=== PATIENT | female | born 2000 | race Caucasian/White ===

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

== ENCOUNTER 2018-04-07 08:19 | Emergency (ER) | payer BC, MEDICAID ==
[2018-04-07 08:32] VITALS: TEMP 97.6
[2018-04-07] MEDS ORDERED: KETOROLAC TROMETHAMINE INJ 30 MG/ML VIAL IV ONE (08:43)
[2018-04-07] MEDS ORDERED: SODIUM CHLORIDE 0.9% 1000ML 1,000 ML IVS ONE (08:43)
[2018-04-07] MEDS ORDERED: MAGNESIUM HYDROXIDE 30 ML UD PO ONE (08:43)
[2018-04-07] MEDS ORDERED: PANTOPRAZOLE SODIUM TAB 40 MG PO ONE (09:33)
[2018-04-07] MEDS ORDERED: SUCRALFATE 1 GM/10 ML 1 GM UD PO ONE (09:33)
--- NOTE | 2018-04-07 09:40 | ED.PDOC ---
History of Present Illness - General Chief Complaint: Problem Stated Complaint: right flank and back pain Time Seen by Provider: 04/07/18 08:26 Source: patient Exam Limitations: no limitations - History of Present Illness Initial Comments: The patient is a 18-year-old female presenting to the emergency room secondary to epigastric and right upper quadrant pain. She reports that this is been present for the last 3 days. She was seen at an outside hospital and did have a fairly extensive workup including blood work and a CT scan of the abdomen and only really showed some constipation. No evidence of appendicitis or gallbladder disease. No obstruction. She has not been throwing up since that visit but she has had some mild nausea. She has not had a bowel movement in the last 3 days. She was having a little bit of diarrhea for the couple of days before that. No definite fevers. No history of any gallbladder or pancreatitis issues. She has been passing gas. No palpable mass in the abdominal exam. Tenderness does appear primarily in the epigastric and right upper quadrant region. She denies any vaginal discharge. No lower abdominal pain palpation. No blood in the urine. Timing/Duration: other Severity: moderate Improving Factors: nothing Worsening Factors: nothing Associated Symptoms: loss of appetite, malaise, nausea/vomiting Allergies/Adverse Reactions: Allergies NO KNOWN ALLERGY Allergy (Verified 11/04/16 03:10) Home Medications: Ambulatory Orders Ondansetron HCl [Zofran] 4 mg PO Q4HR #20 tab 11/04/16 Esomeprazole Magnesium [Nexium] 40 mg PO BID #60 cap 04/07/18 Sucralfate Tab [Carafate Tab] 1 gm PO QID #120 tab 04/07/18 Review of Systems - Review of Systems Constitutional: States: malaise EENTM: States: no symptoms reported Respiratory: States: no symptoms reported Cardiology: States: no symptoms reported Gastrointestinal/Abdominal: States: abdominal pain, constipation, nausea Genitourinary: States: frequency - mild Musculoskeletal: States: no symptoms reported Skin: States: no symptoms reported Neurological: States: no symptoms reported Endocrine: States: no symptoms reported All other Systems: No Change from Baseline Past Medical History (General) - Patient Medical History Hx Seizures: No Hx Stroke: No Hx Dementia: No Hx Asthma: No Hx of COPD: No Hx Cardiac Disorders: No Hx Congestive Heart Failure: No Hx Pacemaker: No Hx Hypertension: No Hx Thyroid Disease: No Hx Diabetes: No Hx Gastroesophageal Reflux: No Hx Renal Disease: No Hx Cancer: No Hx of HIV: No Hx MRSA: No - Vaccination History Hx Tetanus, Diphtheria Vaccination: No Hx Influenza Vaccination: No Hx Pneumococcal Vaccination: No - Social History Hx Tobacco Use: Yes Hx Alcohol Use: No Hx Substance Use: No Hx Substance Use Treatment: No Hx Depression: No - Female History Patient is a Female of Child Bearing Age (10 -59 yrs old): Yes Family Medical History - Family History Father Family History: Unknown Physical Exam - Physical Exam General Appearance: Alert, No apparent distress Eye Exam: bilateral normal Ears, Nose, Throat: hearing grossly normal, normal ENT inspection, normal pharynx Neck: full range of motion, supple Respiratory: lungs clear, normal breath sounds, no respiratory distress, no accessory muscle use Cardiovascular/Chest: normal peripheral pulses, regular rate, rhythm, no edema Peripheral Pulses: radial,right: 2+, radial,left: 2+, dorsalis pedis,right: 2+, dorsalis pedis,left: 2+ Gastrointestinal/Abdominal: soft, other - see history of present illness Rectal Exam: deferred Back Exam: other - she does have some diffuse mid back discomfort to percussion. No visible palpable deformities. 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 Repeated laboratory work here fails to show any significant abnormality of the white blood cell count, amylase, lipase or liver function tests. I believe the patient is having an issue with gastritis and duodenitis. The patient had a CT scan performed 3 days ago at an outside facility showing essentially no acute pathology. I believe the risk outweigh the benefits of repeating a CT on this young patient today. Ultrasound is not available. The patient will be treated for the above with Carafate and Nexium for the next month. She needs to avoid large meals, hot or spicy foods, nicotine and caffeine. She can bulk picker [id number] Maalox or Mylanta for any acute gastritis symptoms. She can take this as needed. She has been given a dose of milk of magnesia here for the constipation and she can take a dose of MiraLAX daily until she is going back to the bathroom with some regularity. ER warnings were given for any worsening. If symptoms do worsen then a right upper quadrant ultrasound may be warranted at a facility where one is available. She should keep follow-up with her primary care doctor later this coming week. Encourage ambulation to prevent further constipation. Avoid opiate-type pain medications and antidiarrheals such as Imodium or Pepto-Bismol. - Results/Orders Results/Orders: Laboratory Results - last 24 hr 04/07/18 04/07/18 04/07/18 08:36 08:43 08:56 WBC 5.8 RBC 5.07 Hgb 15.3 Hct 45.6 MCV 89.9 MCH 30.2 MCHC 33.6 RDW 12.3 Plt Count 233 MPV 8.6 Absolute Neuts (auto) 3.90 Absolute Lymphs (auto) 1.60 Absolute Monos (auto) 0.30 Absolute Eos (auto) 0.00 Absolute Basos (auto) 0.00 Neutrophils % 66.9 Lymphocytes % 26.9 Monocytes % 5.2 Eosinophils % 0.4 L Basophils % 0.6 Sodium Potassium Chloride Carbon Dioxide Anion Gap BUN Creatinine BUN/Creatinine Ratio Random Glucose Serum Osmolality Calcium Total Bilirubin AST ALT Alkaline Phosphatase Serum Total Protein Albumin Globulin Albumin/Globulin Ratio Amylase Lipase Urine Color Yellow Urine Appearance Clear Urine pH 6.0 Ur Specific Beggs 1.020 Urine Protein Negative Urine Glucose (UA) Negative Urine Ketones Negative Urine Blood Small H Urine Nitrite Negative Urine Bilirubin Negative Urine Urobilinogen 0.2 Ur Leukocyte Esterase Negative Urine RBC 0-1 Urine WBC 0 Ur Epithelial Cells 5-10 Urine Bacteria 0 Urine HCG, Qual Negative 04/07/18 08:56 WBC RBC Hgb Hct MCV MCH MCHC RDW Plt Count MPV Absolute Neuts (auto) Absolute Lymphs (auto) Absolute Monos (auto) Absolute Eos (auto) Absolute Basos (auto) Neutrophils % Lymphocytes % Monocytes % Eosinophils % Basophils % Sodium 137 Potassium 3.4 L Chloride 106 Carbon Dioxide 23 Anion Gap 11.4 L BUN < 5 L Creatinine 0.78 BUN/Creatinine Ratio 6.4 L Random Glucose 82 Serum Osmolality 270.2 L Calcium 9.2 Total Bilirubin 0.7 AST 20 ALT 17 Alkaline Phosphatase 50 L Serum Total Protein 8.0 Albumin 4.1 Globulin 3.9 H Albumin/Globulin Ratio 1.1 Amylase 50 Lipase 28 Urine Color Urine Appearance Urine pH Ur Specific Beggs Urine Protein Urine Glucose (UA) Urine Ketones Urine Blood Urine Nitrite Urine Bilirubin Urine Urobilinogen Ur Leukocyte Esterase Urine RBC Urine WBC Ur Epithelial Cells Urine Bacteria Urine HCG, Qual Departure - Departure Clinical Impression: Gastroenteritis Constipation Qualifiers: Constipation type: unspecified constipation type Qualified Code(s): K59.00 - Constipation, unspecified Disposition: Discharge to Home or Self Care Condition: Fair Departure Forms: ED Discharge - Pt. Copy, Patient Portal Self Enrollment Instructions: Constipation, Adult (DC), Gastritis (DC) Diet: bland diet - High-fiber Activity: increase activity as tolerated Prescriptions: Esomeprazole Magnesium [Nexium] 40 mg PO BID #60 cap Sucralfate Tab [Carafate Tab] 1 gm PO QID #120 tab Home Medications: Ambulatory Orders Ondansetron HCl [Zofran] 4 mg PO Q4HR #20 tab 11/04/16 Esomeprazole Magnesium [Nexium] 40 mg PO BID #60 cap 04/07/18 Sucralfate Tab [Carafate Tab] 1 gm PO QID #120 tab 04/07/18 Additional Instructions: the patient's a 37-year-old male presenting with what is most likely a viral upper respiratory tract infection. He needs to keep himself hydrated. He will be written for Zofran for any nausea in the future. He can take one Motrin twice a day for the next few days to help reduce any extra inflammation. He can also take [id number] Flonase or Rhinocort twice daily with 1 spray in each nostril to help reduce symptoms of rhinitis. The Motrin will help with the pharyngitis. He'll be written for doxycycline 1 tablet daily for the next 7 days primarily as a prophylactic measure given his comorbidities. He is in no respiratory distress. I would recommend that he wear a mask as his mother is apparently in a somewhat immunocompromised state. He does need to increase his handwashing as well to help prevent spread. He has tested negative for flu here today. He needs to control his blood sugars carefully. A humidifier may also help at night to thin secretions. he needs to follow up with his primary care doctor in a couple of days. ER warnings were given.
[2018-04-07 10:05] VITALS: BP 107/68; O2SAT 98
--- NOTE | 2018-04-07 10:06 | RAD ---
Procedure: XR ABDOMEN SUPINE AND ERECT WITH CHEST (ABD ACUTE SERIES) Exam Date: 04/07/2018 9:42 AM CDT Ordering Provider: Alber Dallas Clinical Indication: upper abd pain, nausea, constipation Comparison: None Findings: Lungs are clear. Heart size is within normal limits. Abdomen views show non-obstructive bowel gas pattern. No pneumoperitoneum. Moderate volume stool burden. Impression: No acute pulmonary process. Nonobstructive bowel gas pattern. Electronically signed by: Wilfredo Azevedo MD 04/07/2018 10:04 AM CDT
== END 2018-04-07 10:40 | disposition home or self-care (01) ==
LOC: ER 08:19
DX: K52.9 Noninfective gastroenteritis and colitis, unspecified (principal); K59.00 Constipation, unspecified; Z87.891 Personal history of nicotine dependence
CPT/HCPCS: 36415; 74019; 80053; 81001; 81025; 82150; 83690; 85025; J1885; J7030

== ENCOUNTER 2018-11-26 21:20 | Emergency (ER) | payer BC ==
[2018-11-26] MEDS: SODIUM CHLORIDE 0.9% 1000ML 1,000 ML IVS ONE (22:00)
[2018-11-26] MEDS: ONDANSETRON ODT 8 MG TAB SL ONE (22:00)
[2018-11-26] MEDS: ALUMINUM & MAGNESIUM HYDROXIDE 30 ML UD PO ONE (22:01)
[2018-11-26] MEDS ORDERED: MAGNESIUM SULFATE PREMIX 4GM 50 ML IVPB ONE (22:29)
[2018-11-26] MEDS: POTASSIUM CHLORIDE ELIXIR 20 MEQ/15 ML UD PO ONE (22:31)
[2018-11-26] MEDS: MAGNESIUM SULFATE PREMIX 4GM 4 GM in PREMIX BAG 1 BAG IVPB ONE (22:31)
[2018-11-26 23:41] VITALS: O2SAT 98
--- NOTE | 2018-11-27 00:15 | ED.PDOC ---
History of Present Illness - General Chief Complaint: GI Problem Stated Complaint: N/V cramping, 18 weeks IUP Time Seen by Provider: 11/26/18 21:21 Source: patient Exam Limitations: no limitations - History of Present Illness Initial Comments: The patient's a 18-year-old female presenting to the emergency room secondary to frequent nausea and vomiting over the last 2 months along with some cramping in her back over the last 2-3 days. She is almost 19 weeks . No fever. She does have a history of low potassium. 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 Timing/Duration: unsure Severity: moderate Improving Factors: nothing Worsening Factors: nothing Associated Symptoms: malaise, nausea/vomiting Allergies/Adverse Reactions: Allergies NO KNOWN ALLERGY Allergy (Verified 11/04/16 03:10) Home Medications: Ambulatory Orders Multivit-Min W/Fe-FA [Pre-Tonio Formula] 1 tab PO DAILY 11/26/18 Review of Systems - Review of Systems Constitutional: States: malaise EENTM: States: no symptoms reported Respiratory: States: no symptoms reported Cardiology: States: no symptoms reported Gastrointestinal/Abdominal: States: see HPI Genitourinary: States: no symptoms reported - no vaginal discharge. No vaginal bleeding. No loss of fluid. Musculoskeletal: States: no symptoms reported Skin: States: no symptoms reported Neurological: States: no symptoms reported Endocrine: States: no symptoms reported All other Systems: No Change from Baseline Past Medical History (General) - Patient Medical History Hx Seizures: No Hx Stroke: No Hx Dementia: No Hx Asthma: No Hx of COPD: No Hx Cardiac Disorders: No Hx Congestive Heart Failure: No Hx Pacemaker: No Hx Hypertension: No Hx Thyroid Disease: No Hx Diabetes: No Hx Gastroesophageal Reflux: No Hx Renal Disease: No Hx Cancer: No Hx of HIV: No Hx MRSA: No - Vaccination History Hx Tetanus, Diphtheria Vaccination: Yes Hx Influenza Vaccination: No Hx Pneumococcal Vaccination: No - Social History Hx Tobacco Use: Yes Hx Alcohol Use: No Hx Substance Use: No Hx Substance Use Treatment: No Hx Depression: No - Female History Patient is a Female of Child Bearing Age (10 -59 yrs old): Yes Patient : Yes - Triage Comment ED Triage Comment: Hospitalized in past for low potassium. 2nd , states D&C with first Family Medical History - Family History Father Family History: Unknown Physical Exam - Physical Exam General Appearance: Alert, Comfortable, No apparent distress Eye Exam: bilateral normal Ears, Nose, Throat: hearing grossly normal, normal ENT inspection Neck: full range of motion, supple Respiratory: lungs clear, normal breath sounds, no respiratory distress, no accessory muscle use Cardiovascular/Chest: normal peripheral pulses, no edema, other - regular rate Peripheral Pulses: radial,right: 2+, radial,left: 2+ Gastrointestinal/Abdominal: non tender, soft Rectal Exam: deferred, other - speculum exam shows a closed cervical os. No abnormal discharge. No pooling. 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 She does not appear to be in active labor. Bed side ultrasound by me shows heart tones in the 130s with ample fluid and a posterior placenta. She received a dose of potassium and magnesium here as well as a liter of IV fluids. She will be written for doxylamine for the nausea and vomiting of and Zofran for rescue use. She needs to follow up with her cupola melter helper. ER warnings were given. - Results/Orders Results/Orders: 11/26/18 21:52 Urine Culture Stat Laboratory Results - last 24 hr 11/26/18 11/26/18 11/26/18 21:47 21:47 21:52 WBC 7.8 RBC 4.32 Hgb 13.1 Hct 38.9 MCV 89.9 MCH 30.4 MCHC 33.8 RDW 13.3 Plt Count 203 MPV 8.3 Absolute Neuts (auto) 5.30 Absolute Lymphs (auto) 2.00 Absolute Monos (auto) 0.50 Absolute Eos (auto) 0.00 Absolute Basos (auto) 0.00 Neutrophils % 67.3 Lymphocytes % 25.7 Monocytes % 6.3 Eosinophils % 0.5 L Basophils % 0.2 Sodium 133 L Potassium 2.9 L Chloride 103 Carbon Dioxide 20 L Anion Gap 12.9 BUN 7 Creatinine 0.47 L BUN/Creatinine Ratio 14.9 Random Glucose 84 Serum Osmolality 263.5 L Calcium 8.6 Magnesium 1.6 L Total Bilirubin 0.3 AST 19 ALT 10 Alkaline Phosphatase 49 L Serum Total Protein 6.8 Albumin 3.2 Globulin 3.6 H Albumin/Globulin Ratio 0.9 L Amylase 61 Lipase 30 TSH 2.39 Urine Color Yellow Urine Appearance Clear Urine pH 6.0 Ur Specific Bricelyn 1.015 Urine Protein Negative Urine Glucose (UA) Negative Urine Ketones Negative Urine Blood Negative Urine Nitrite Negative Urine Bilirubin Negative Urine Urobilinogen 0.2 Ur Leukocyte Esterase Small H Urine RBC 0 Urine WBC 1-3 Ur Epithelial Cells 1-3 Urine Bacteria 2+ H Urine Mucus Trace Departure - Departure Clinical Impression: Nausea and vomiting during prior to 22 weeks gestation, Hypokalemia, Hypomagnesemia Disposition: Discharge to Home or Self Care Condition: Fair Departure Forms: ED Discharge - Pt. Copy, Patient Portal Self Enrollment Instructions: Nausea and Vomiting of (DC) Diet: bland diet Activity: increase activity as tolerated Referrals: EDWARDO MAXWELL [Primary Care Provider] - 1-2 Days Home Medications: Ambulatory Orders Multivit-Min W/Fe-FA [Pre-Tonio Formula] 1 tab PO DAILY 11/26/18 Additional Instructions: the patient's a 18-year-old female presenting to the emergency room secondary to nausea and vomiting of with mild dehydration along with hypokalemia and hypomagnesemia. She does not appear to be in active labor. Bedside ultrasound by me shows heart tones in the 130s with ample fluid and a posterior placenta. She received a dose of potassium and magnesium here as well as a liter of IV fluids. She will be written for doxylamine for the nausea and vomiting of and Zofran for rescue use. She needs to follow up with her cupola melter helper. ER warnings were given.
[2018-11-27 00:20] VITALS: BP 97/57
[2018-11-27 00:27] VITALS: TEMP 97.1
== END 2018-11-27 00:22 | disposition home or self-care (01) ==
LOC: ER 21:20
DX: O21.9 Vomiting of pregnancy, unspecified (principal); O99.282 Endocrine, nutritional and metabolic diseases complicating pregnancy, second trimester; E87.6 Hypokalemia; E83.42 Hypomagnesemia; E86.0 Dehydration; Z3A.18 18 weeks gestation of pregnancy; Z87.891 Personal history of nicotine dependence
CPT/HCPCS: 36415; 80053; 81001; 82150; 83690; 83735; 84443; 85025; 87086; J3475; J7030

== ENCOUNTER → 2018-12-04 | Outpatient (CLI) | payer BC | LOC: LAB.O 13:07 | PROVIDERS: ATTEND Obstetrics & Gynecology | DX: O09.32 Supervision of pregnancy with insufficient antenatal care, second trimester (principal) ==

== ENCOUNTER 2019-06-03 10:02 | Emergency (ER) | payer BC ==
--- NOTE | 2019-06-03 10:34 | ED.PDOC ---
History of Present Illness - General Chief Complaint: Abdominal Pain Stated Complaint: pain under right breast Time Seen by Provider: 06/03/19 10:31 Source: patient Exam Limitations: no limitations - History of Present Illness Initial Comments: 19 yo F who presents for R rib pain onset one week ago, improved but then returned, worse last night. Reports pain is deep and does not hurt when she presses on it, it is worse when she moves, unaffected by breathing. +smoker. States she takes her of her 1 month old, 2 years old, and grandpa. She denies any heavy lifting. Denies f/c, cough, congestion, CP, SOB, abd pain, n/v/d, edema, urinary sx, trauma, falls. Allergies/Adverse Reactions: Allergies NO KNOWN ALLERGY Allergy (Verified 11/04/16 03:10) Home Medications: Ambulatory Orders Multivit-Min W/Fe-FA [Pre-Tonio Formula] 1 tab PO DAILY 11/26/18 Review of Systems - Review of Systems Constitutional: Denies: chills, fever EENTM: Denies: nose congestion, throat pain Respiratory: Denies: cough, short of breath Cardiology: Denies: chest pain, edema, palpitations, syncope Gastrointestinal/Abdominal: Denies: abdominal pain, constipation, diarrhea, nausea, vomiting Genitourinary: Denies: dysuria, frequency, hematuria Musculoskeletal: States: other - R lower rib pain. Denies: back pain, neck pain Skin: Denies: lesions, rash Neurological: Denies: headache, numbness, weakness Past Medical History (General) - Patient Medical History Hx Seizures: No Hx Stroke: No Hx Dementia: No Hx Asthma: No Hx of COPD: No Hx Cardiac Disorders: No Hx Congestive Heart Failure: No Hx Pacemaker: No Hx Hypertension: No Hx Thyroid Disease: No Hx Diabetes: No Hx Gastroesophageal Reflux: No Hx Renal Disease: No Hx Cancer: No Hx of HIV: No Hx MRSA: No - Vaccination History Hx Tetanus, Diphtheria Vaccination: Yes Hx Influenza Vaccination: No Hx Pneumococcal Vaccination: No - Social History Hx Tobacco Use: Yes Hx Alcohol Use: No Hx Substance Use: No Hx Substance Use Treatment: No Hx Depression: No - Female History Patient is a Female of Child Bearing Age (10 -59 yrs old): Yes - Post- delivery on 04/21/19 Patient : Yes Family Medical History - Family History Father Family History: Unknown Physical Exam - Physical Exam General Appearance: Alert, Comfortable, No apparent distress, Well Developed, Well Nourished Eye Exam: bilateral normal Neck: full range of motion, supple Respiratory: chest non-tender, lungs clear, normal breath sounds, no respiratory distress, no accessory muscle use Cardiovascular/Chest: normal peripheral pulses, regular rate, rhythm, no edema, no gallop, no JVD, no murmur Peripheral Pulses: radial,right: 2+, radial,left: 2+ Gastrointestinal/Abdominal: non tender, soft, no organomegaly, no pulsatile mass Back Exam: no CVA tenderness Extremity: normal range of motion, non-tender, normal inspection, no pedal edema, no calf tenderness, normal capillary refill Neurologic: no motor/sensory deficits, alert, normal mood/affect, oriented x 3 Skin Exam: normal color, warm/dry Progress - Progress Progress: Rechecked pt, doing well. I have explained and reviewed all results with the pt. Comfortable with d/c home. I explained that emergent conditions may arise and to return to the ER for new, worsening, or any persistent conditions. I've explained the importance of f/u for recheck. All questions and concerns addressed at this time. Pt understands and agrees with plan. Pt well appearing, NAD, is stable for discharge. Rosa Martínez MD Emergency Medicine Physician Billing Number [id number] - Results/Orders Results/Orders: CXR: EXAM DESCRIPTION: Chest,2 Views (accession [id number]), Ribs,Right 3 Views (accession [id number]) CLINICAL HISTORY: 19 years Female, pain COMPARISON: None. FINDINGS: Five views/radiographs Heart size and pulmonary vessels are within normal limits. There is no pneumothorax or pleural effusion. The lungs are clear bilaterally. The soft tissues are unremarkable. No acute osseous findings. No displaced rib fracture identified. IMPRESSION: No acute cardiopulmonary abnormality. No displaced rib fracture identified. Electronically signed by: Colby Zabala MD 06/03/2019 11:07 AM C[employer] SERVICE [employer]ENT - EKG/XRAY/CT EKG: Sinus Comments: T wave flattening III, V4; T wave inversion V2, V3; Sinus arrhythmia Departure - Departure Clinical Impression: Rib pain on right side Time of Disposition: 11:25 Disposition: Discharge to Home or Self Care Health Concerns: condition: stable Departure Forms: ED Discharge - Pt. Copy, Patient Portal Self Enrollment Instructions: DI for Abdominal Pain-Adult Referrals: DANGELO ESPINOZA MD/OBGYN [Primary Care Provider] - 1-5 Days Home Medications: Ambulatory Orders Multivit-Min W/Fe-FA [Pre- Formula] 1 tab PO DAILY 11/26/18 Additional Instructions: Follow up: [facility] As needed, if symptoms worsen
--- NOTE | 2019-06-03 11:08 | RAD ---
EXAM DESCRIPTION: Chest,2 Views (accession [id number]), Ribs,Right 3 Views (accession [id number]) CLINICAL HISTORY: 19 years Female, pain COMPARISON: None. FINDINGS: Five views/radiographs Heart size and pulmonary vessels are within normal limits. There is no pneumothorax or pleural effusion. The lungs are clear bilaterally. The soft tissues are unremarkable. No acute osseous findings. No displaced rib fracture identified. IMPRESSION: No acute cardiopulmonary abnormality. No displaced rib fracture identified. Electronically signed by: Colby Zabala MD 06/03/2019 11:07 AM [facility]
--- NOTE | 2019-06-03 11:09 | RAD ---
EXAM DESCRIPTION: Chest,2 Views (accession [id number]), Ribs,Right 3 Views (accession [id number]) CLINICAL HISTORY: 19 years Female, pain COMPARISON: None. FINDINGS: Five views/radiographs Heart size and pulmonary vessels are within normal limits. There is no pneumothorax or pleural effusion. The lungs are clear bilaterally. The soft tissues are unremarkable. No acute osseous findings. No displaced rib fracture identified. IMPRESSION: No acute cardiopulmonary abnormality. No displaced rib fracture identified. Electronically signed by: Colby Zabala MD 06/03/2019 11:07 AM [facility]
[2019-06-03] MEDS ORDERED: NAPROXEN 250 MG TAB PO ONE (11:25)
[2019-06-03 11:39] VITALS: BP 93/64; TEMP 98.3; O2SAT 98
[2019-06-03] MEDS ORDERED: NAPROXEN SODIUM 220 MG TAB PO ONE (11:39)
== END 2019-06-03 11:49 | disposition home or self-care (01) ==
LOC: ER 10:02
DX: R07.81 Pleurodynia (principal); I49.9 Cardiac arrhythmia, unspecified; F17.200 Nicotine dependence, unspecified, uncomplicated

== ENCOUNTER → 2020-03-09 | Outpatient (CLI) | payer BC ==
--- NOTE | 2020-03-09 15:09 | RAD ---
EXAM DESCRIPTION: Foot,Right 3 Views CLINICAL HISTORY: 20 years Female, pain in right foot COMPARISON: None. TECHNIQUE: 3 view radiograph of the right foot. IMPRESSION: No acute displaced fracture. No dislocation. Normal anatomic alignment of the tarsal bones. Intact Lisfranc joint. No soft tissue defect or radiopaque foreign body. Electronically signed by: João Scanlon MD 03/09/2020 3:06 PM CDT
== END ==
LOC: YCFC.O 14:33
PROVIDERS: ATTEND Family Medicine
DX: M79.671 Pain in right foot (principal)